=== PATIENT | female | born 1980 | race Two or more races ===

== ENCOUNTER → 2024-04-02 17:16 | Outpatient (REF) | payer OTHER, SELFPAY | LOC: RAD 17:16 | PROVIDERS: ATTENDING PHYSICIAN Family Medicine | DX: N94.6 Dysmenorrhea, unspecified (principal); N92.0 Excessive and frequent menstruation with regular cycle | CPT/HCPCS: 76830; 76856 ==

== ENCOUNTER → 2024-04-03 08:22 | Outpatient (REF) | payer OTHER, SELFPAY | LOC: WDC 08:22 | PROVIDERS: ATTENDING PHYSICIAN Family Medicine | DX: Z12.31 Encounter for screening mammogram for malignant neoplasm of breast (principal) | CPT/HCPCS: 77063; 77067 ==

== ENCOUNTER → 2024-04-16 07:26 | Outpatient (REF) | payer OTHER, SELFPAY | LOC: WDC 07:26 | PROVIDERS: ATTENDING PHYSICIAN Family Medicine | DX: R92.8 Other abnormal and inconclusive findings on diagnostic imaging of breast (principal) | CPT/HCPCS: 76642 ==

== ENCOUNTER → 2024-10-15 09:36 | Outpatient (REF) | payer OTHER, SELFPAY | LOC: WDC 09:36 | PROVIDERS: ATTENDING PHYSICIAN Family Medicine | DX: R92.8 Other abnormal and inconclusive findings on diagnostic imaging of breast (principal) | CPT/HCPCS: 76642; 77061; 77065 ==

== ENCOUNTER → 2024-10-22 06:25 | Outpatient (REF) | payer OTHER, SELFPAY | LOC: WDC 06:25 | PROVIDERS: ATTENDING PHYSICIAN Family Medicine | DX: N63.24 Unspecified lump in the left breast, lower inner quadrant (principal) | CPT/HCPCS: 19081 ==